=== PATIENT | male | born 1980 | race Caucasian/White ===

== ENCOUNTER 2021-07-14 09:03 | Emergency (ER) | payer SELFPAY ==
[~2021-07-14] VITALS: Ht 175.3 cm; Wt 76.7 kg
[2021-07-14 09:15] VITALS: BP 131/81
--- NOTE | 2021-07-14 09:39 | NUR ---
AMALGAMATOR: PT PROVIDED URINE SAMPLE. UA COLLECTED AND SENT TO LAB.
== END 2021-07-14 10:48 | disposition home or self-care (01) ==
LOC: ED 10:40
DX: Z00.00 Encounter for general adult medical examination without abnormal findings (principal); R30.0 Dysuria
CPT/HCPCS: 87491; 87591; 99283